=== PATIENT | male | born 1955 | race African-American/Black ===

== ENCOUNTER 2019-09-11 08:50 | Emergency (ER) | payer OTHER ==
[~2019-09-11] VITALS: Ht 188 cm; Wt 102.0 kg
[2019-09-11] MEDS ORDERED: TETRACAINE 0.5% OPHTH DROPS 4ML LEFTEYE ONE (09:30)
[2019-09-11] MEDS ORDERED: FLUORESCEIN SODIUM 1MG/STRIP LEFTEYE ONE (09:30)
[2019-09-11 10:10] VITALS: BP 140/83
== END 2019-09-11 10:12 | disposition home or self-care (01) ==
LOC: ER 09:05
DX: T15.92XA Foreign body on external eye, part unspecified, left eye, initial encounter (principal); X58.XXXA Exposure to other specified factors, initial encounter; Y93.89 Activity, other specified; Y92.89 Other specified places as the place of occurrence of the external cause; Y99.0 Civilian activity done for income or pay; I10 Essential (primary) hypertension; E11.9 Type 2 diabetes mellitus without complications
CPT/HCPCS: 99283